=== PATIENT | male | born 1985 | race Caucasian/White ===

== ENCOUNTER 2020-08-12 18:42 | Emergency (ER) | payer OTHER ==
[~2020-08-12 18:42] MED LIST: MEDROL4 MG PO; TESSALON PERLE100 MG PO; VENTOLIN HFA 66.7 GM INH
== END 2020-08-12 19:30 | disposition left against medical advice (07) ==
LOC: ER1 18:42
DX: Z53.21 Procedure and treatment not carried out due to patient leaving prior to being seen by health care provider (principal)

== ENCOUNTER 2020-12-30 17:52 | Emergency (ER) | payer OTHER ==
[2020-12-30] MEDS ORDERED: AMOXICILLIN500 M1 PO (18:31)
[2020-12-30] MEDS ORDERED: IBUPROFEN800 MG PO (18:31)
== END 2020-12-30 19:09 | disposition home or self-care (01) ==
LOC: ER1 17:52
DX: K08.89 Other specified disorders of teeth and supporting structures (principal)
CPT/HCPCS: 96372; 99282; J1885

== ENCOUNTER → 2021-03-26 | Outpatient (CLI) | payer OTHER ==
[~2021-03-26] MED LIST changes: +AMOXICILLIN500 M1 PO; +IBUPROFEN800 MG PO
== END ==
LOC: KOH-I 11:36
DX: M25.572 Pain in left ankle and joints of left foot (principal); M25.571 Pain in right ankle and joints of right foot
CPT/HCPCS: 73610